=== PATIENT | male | born 1960 | race Caucasian/White ===

== ENCOUNTER → 2024-08-01 | Outpatient (CLI) | payer OTHER, SELFPAY ==
--- NOTE | 2024-08-01 12:44 | MRI_ITS ---
PROCEDURE: PELVIS W/WO CONTRAST ([id number]), 08/01/2024 REASON FOR EXAM: PLANNING FOR XRT. PSA reportedly 6.59 on 04/24/2024. TECHNIQUE: Multisequence multiplanar MRI pelvis was performed with and without IV contrast. CONTRAST: 20 mL Clariscan COMPARISON: None FINDINGS: Note dynamic postcontrast imaging was not performed; an alternative PI-RADS algorithm was therefore utilized. Limitation related to presumed postbiopsy general blood products scattered throughout the QQTHO-msfzcmu-qspz-LEFT peripheral zones, limiting evaluation of those areas. Prostate size: 5.0 x 3.2 x 4.3 cm, estimated volume 36 mL. Placement of spacing material between the anterior rectum and the posterior prostate mostly located along the midline anterior rectum. Closest margin at the level of the base is on the RIGHT and measures 2-3 mm. There are persistent areas of direct contact between the anterior rectum and posterior prostate at the level of the midgland and apex. Suspect mild anterior rectal wall infiltration, grade 1/2. Suspect fiducial markers. Transition zone: PI-RADS 2 findings. Additional lesions as below: *Lesion 1: GMPDR-ephcyby-bvio-LEFT anterior transition zones and probably also of the anterior fibromuscular stroma extending from the base to apex, 2.3 cm (series 8, images 19-20). This probably also involves the RIGHT anterior peripheral zone. *T2 score: 5 *DWI score: 5 *DCE: N/A. *Overall PI-RADS: PI-RADS 5. *Extracapsular extension:No definite extracapsular extension, however, there is capsular abutment greater than 1 cm which increases the risk of occult early/microscopic extracapsular extension. Peripheral Zone: Limited evaluation due to presumed postprocedural blood products as above. Background changes of likely prostatitis (PI-RADS 2). Additional lesions as below: *Lesion 2: mid LEFT posterolateral peripheral zone, 1.0 cm (series 8, image 19). *T2 score: 4. *DWI score: 4. *DCE: N/A. *Overall PI-RADS: PI-RADS 4. *Extracapsular extension:Capsular abutment without gross extracapsular extension Neurovascular bundles: Unremarkable. Seminal vesicles: Unremarkable. Bladder: 5 mm polypoid enhancing nodular structure in the dependent bladder near the LEFT ureteral orifice. Mild wall thickening and trabeculation suggesting chronic bladder outlet obstruction. Lymph nodes: No overt pelvic lymphadenopathy. Mildly prominent RIGHT external iliac node by PI-RADS criteria, up to 7 mm short axis. Bones: No destructive or frankly suspicious bony lesions identified. Other: Diverticulosis.. MRI/Pelvis W/WO Contrast IMPRESSION: 1. Exam limited by the presence of presumed postprocedural blood products withi n the RWLTR-birhtqt-auat-LEFT peripheral zones. 2. 5 mm polypoid nodular enhancing lesion within the bladder near the LEFT uret eral orifice. Recommend cystoscopic evaluation to exclude a small bladder neoplasm. Urine cytology may also be helpful. 3. Placement of spacing material between the anterior rectum and posterior pros chavis. Closest margin at the level of the base 2-3 mm. Small areas of persistent direct contact along the midgland and apex. Malorie pect mild anterior rectal wall infiltration. 4. 2.3 cm PI-RADS 5 lesion in the FQAOV-erawkqm-tjal-LEFT anterior transition z ones and probably the anterior fibromuscular stroma extending from base to apex (lesion 1). This probably also involves the RIGHT anterior peripheral zone. 5. 1.0 cm PI-RADS 4 lesion in the LEFT mid posterolateral peripheral zone (lesi on 2). 6. No definite extracapsular extension, however, there is capsular abutment by both lesions and for greater than 1 cm by lesion 1, which increases the risk of occult early/microscopic extracapsular extension . 7. No overt pelvic lymphadenopathy. 8. Additional description as above. Reading Location: [id number]
== END | disposition home or self-care (01) ==
LOC: MRI 12:37
PROVIDERS: PCP Nurse Practitioner Family; Referring Provider Student in an Organized Health Care Education/Training Program; Visit Provider Student in an Organized Health Care Education/Training Program
DX: C61 Malignant neoplasm of prostate (principal)
CPT/HCPCS: 72197; A9575